=== PATIENT | male | born 1975 ===

== ENCOUNTER 2017-02-02 19:54 | Emergency (ER) | payer BC, MEDICARE ==
[2017-02-02 20:47] VITALS: BP 145/74; PULSE 82; RESP 20; TEMP 98.1; O2SAT 100
--- NOTE | 2017-02-02 21:11 | C.PDOC ---
History Of Present Illness A 41 y/o male c/o an itchy rash to the left chest and left mid back for 2 days. Pt denies fever, chills, nausea, vomiting, sick contact, new foods, dizziness, or any other complaints. Time Seen by Provider: 02/02/17 20:53 Chief Complaint (Nursing): Abnormal Skin Integrity History Per: Patient History/Exam Limitations: no limitations Onset/Duration Of Symptoms: Days Current Symptoms Are (Timing): Still Present Location Of Injury: Left: Back (itchy rash), Chest (itchy rash), Anterior: Back , Chest Quality Of Symptoms: Itching Severity: Mild Recent travel outside of the [place]: No Additional History Per: Patient Past Medical History Reviewed: Historical Data, Nursing Documentation, Vital Signs Vital Signs: Last Vital Signs Temp 98.1 F 02/02/17 20:44 Pulse 82 02/02/17 20:44 Resp 20 02/02/17 21:23 BP 145/74 02/02/17 20:44 Pulse Ox 100 02/04/17 04:08 - Medical History PMH: HTN, End Stage Renal Disease, Chronic Kidney Disease - [facility] Procedures HEMODIALYSIS (05/04/14) PERFORMANCE OF URINARY FILTRATION, SINGLE (09/10/15) Family History: States: Unknown Family Hx - Social History Hx Tobacco Use: Yes Hx Alcohol Use: No Hx Substance Use: No - Immunization History Hx Tetanus Toxoid Vaccination: Yes Hx Influenza Vaccination: Yes Hx Pneumococcal Vaccination: No Review Of Systems Constitutional: Negative for: Fever, Chills Gastrointestinal: Negative for: Nausea, Vomiting Skin: Positive for: Rash (Itchy rash to the Left mid back and left chest) Neurological: Negative for: Dizziness Physical Exam - Physical Exam Appears: Non-toxic, No Acute Distress Skin: Warm, Dry, Rash (Erythematous vesicular rash; dermatomal pattern to left upper back, radiating to left chest wall/ abdomen) Head: Atraumatic, Normacephalic Eye(s): bilateral: Normal Inspection Oral Mucosa: Moist Chest: Symmetrical, No Tenderness Cardiovascular: Rhythm Regular, No Murmur Respiratory: Normal Breath Sounds, No Accessory Muscle Use, No Wheezing Neurological/Psych: Oriented x3, Normal Speech, Normal Cognition, Normal Sensation Gait: Steady ED Course And Treatment O2 Sat by Pulse Oximetry: 100 (RA) Pulse Ox Interpretation: Normal Progress Note: Impression: A 41 y/o male c/o rash to the left chest and left mid back for 2 days. Plans: Reassess. Pt is in no acute distress at this time. Pt was advised to follow up with PMD within 1-2 days. Disposition Counseled Patient/Family Regarding: Diagnosis, Need For Followup, Rx Given - Disposition Referrals: Jamey Viveros DO [Staff Provider] - Disposition: HOME/ ROUTINE Disposition Time: 21:08 Condition: STABLE Additional Instructions: Please follow up with PMD Take meds as prescribed Return to ER if worse Prescriptions: Acetaminophen with Codeine [Tylenol with Codeine #3 Tablet] 2 each PO QID #20 tablet DiphenhydrAMINE [Benadryl] 50 mg PO BID #14 cap Valacyclovir HCl [Valtrex] 1 gm PO TID #21 tablet Instructions: Shingles (ED) - Clinical Impression Clinical Impression: Herpes zoster - Scribe Statement The provider has reviewed the documentation as recorded by the Shobhaibjazmine grey All medical record entries made by the Shobhaibjazmine were at my direction and personally dictated by me. I have reviewed the chart and agree that the record accurately reflects my personal performance of the history, physical exam, medical decision making, and the department course for this patient. I have also personally directed, reviewed, and agree with the discharge instructions and disposition.
== END 2017-02-02 21:23 | disposition home or self-care (01) ==
LOC: C.ER 19:54
DX: B02.9 Zoster without complications (principal)

== ENCOUNTER 2017-02-08 14:14 | Observation (INO) | payer MEDICARE ==
--- NOTE | 2017-02-08 16:11 | C.PDOC ---
History Of Present Illness 41 y/o male presents to ED with complaint of shortness of breath that started today. Patient with past medical history of ESRD, MWF dialysis, and notes he did not have dialysis today because he had to go get his license. He states that he typically gets short of breath when he misses dialysis. Patient denies chest pain. Patient also he has abdominal pain secondary to rash- recent diagnosis of shingles. Denies nausea or vomiting. No fever. Time Seen by Provider: 02/08/17 15:50 Chief Complaint (Nursing): Dizziness/Lightheaded History Per: Patient History/Exam Limitations: no limitations Onset/Duration Of Symptoms: Hrs Current Symptoms Are (Timing): Still Present Past Medical History Reviewed: Historical Data, Nursing Documentation, Vital Signs Vital Signs: Last Vital Signs Temp 97.8 F 02/08/17 14:29 Pulse 91 H 02/08/17 15:11 Resp 20 02/08/17 15:11 BP 190/94 H 02/08/17 15:11 Pulse Ox 100 02/08/17 18:25 - Medical History PMH: HTN, End Stage Renal Disease, Chronic Kidney Disease - [facility] Procedures HEMODIALYSIS (05/04/14) PERFORMANCE OF URINARY FILTRATION, SINGLE (09/10/15) Family History: States: Unknown Family Hx - Social History Hx Tobacco Use: Yes Hx Alcohol Use: No Hx Substance Use: No - Immunization History Hx Tetanus Toxoid Vaccination: Yes Hx Influenza Vaccination: Yes Hx Pneumococcal Vaccination: No Review Of Systems Except As Marked, All Systems Reviewed And Found Negative. Constitutional: Negative for: Fever, Chills Cardiovascular: Negative for: Chest Pain Respiratory: Positive for: Shortness of Breath. Negative for: Cough Gastrointestinal: Positive for: Abdominal Pain. Negative for: Nausea, Vomiting , Diarrhea Skin: Positive for: Rash Neurological: Negative for: Weakness, Numbness Physical Exam - Physical Exam Appears: Non-toxic, No Acute Distress Skin: Warm, Dry, Rash (healing rash to the left side of the abdomen with excoriations ; does not cross midline.) Head: Atraumatic, Normacephalic Eye(s): bilateral: Normal Inspection, EOMI Nose: Normal Oral Mucosa: Moist Neck: Normal ROM, Supple Chest: Symmetrical Cardiovascular: Rhythm Regular Respiratory: Decreased Breath Sounds, No Accessory Muscle Use, No Rhonchi, No Wheezing Gastrointestinal/Abdominal: Soft, No Tenderness, No Guarding, No Rebound Back: Normal Inspection Extremity: Normal ROM, Capillary Refill (< 2 sec. ) Neurological/Psych: Oriented x3, Normal Speech, Normal Cognition ED Course And Treatment - Laboratory Results Result Diagrams: 02/08/17 16:45 02/08/17 16:45 ECG: Interpreted By Me ECG Rhythm: Sinus Rhythm Rate From EC (bpm) O2 Sat by Pulse Oximetry: 100 (RA) Pulse Ox Interpretation: Normal - Radiology CXR: Interpreted by Me, Viewed By Me CXR Interpretation: Yes: Cardiomegaly. No: Infiltrates Progress Note: EKG, CXR, labs ordered and reviewed. Discussed with Dr. Veronica and with head custodian Dr. Zapata at 17:50 who agree upon on plan of admission and dialysis. Disposition - Disposition Disposition: HOSPITALIZED Disposition Time: 17:56 Condition: STABLE - Clinical Impression Clinical Impression: Hyperkalemia, ESRD on dialysis, Herpes zoster, SOB (shortness of breath) - PA / DINKEY SKINNER / Resident Statement MD/DO has reviewed & agrees with the documentation as recorded. - Scribe Statement The provider has reviewed the documentation as recorded by the Scribjazmine Palomino All medical record entries made by the Mark Anthony were at my direction and personally dictated by me. I have reviewed the chart and agree that the record accurately reflects my personal performance of the history, physical exam, medical decision making, and the department course for this patient. I have also personally directed, reviewed, and agree with the discharge instructions and disposition.
[2017-02-08 17:01] LABS: BASO # 0.1 K/uL (0.0-0.2); EOS # 0.3 K/uL (0.0-0.7); HEMATOCRIT 34.6 % (35.0-51.0); LYMPH # 1.6 K/uL (1.0-4.3); LYMPH % 22.9 % (20.0-40.0); MEAN CELL VOLUME 89.9 fL (80.0-94.0); MEAN CORPUSCULAR HEMOGLOBIN 29.3 pg (27.0-31.0); MEAN CORPUSCULAR HGB CONC 32.6 g/dL (33.0-37.0); MEAN PLATELET VOLUME 8.2 fL (7.2-11.7); MONO # 0.8 K/uL (0.0-0.8); MONO % 10.7 % (0.0-10.0); RED CELL DISTRIBUTION WIDTH 15.6 % (11.5-14.5); WHITE BLOOD COUNT 7.2 K/uL (4.8-10.8)
[2017-02-08 17:20] LABS: POTASSIUM 5.7 mmol/L (3.6-5.2)
[2017-02-08 17:22] LABS: BILIRUBIN,TOTAL 0.9 mg/dL (0.2-1.3)
[2017-02-08 17:23] LABS: ALB/GLOB RATIO 1.5 (1.0-2.1); CALCIUM 8.9 mg/dl (8.6-10.4); TOTAL PROTEIN 7.3 g/dL (6.3-8.3)
[2017-02-08 17:35] LABS: TROPONIN I 0.095 ng/mL (0.00-0.120)
--- NOTE | 2017-02-08 18:38 | CP.PCM.HP ---
Past Patient History - Infectious Disease Hx of Infectious Diseases: None - Past Medical History & Family History Past Medical History?: Yes - Past Social History Smoking Status: Light Smoker < 10 Cigarettes Daily - CARDIAC Hx Hypertension: Yes - PULMONARY Hx Respiratory Disorders: No - NEUROLOGICAL Hx Neurological Disorder: No - HEENT Hx HEENT Problems: No - RENAL Hx Chronic Kidney Disease: Yes - ENDOCRINE/METABOLIC Hx Endocrine Disorders: No - HEMATOLOGICAL/ONCOLOGICAL Hx Blood Disorders: No Hx Shingles: Yes (to Abdomen area on January 2017) - INTEGUMENTARY Hx Dermatological Problems: No - MUSCULOSKELETAL/RHEUMATOLOGICAL Hx Musculoskeletal Disorders: No - GASTROINTESTINAL Hx Gastrointestinal Disorders: No - GENITOURINARY/GYNECOLOGICAL Hx Genitourinary Disorders: No - PSYCHIATRIC Hx Substance Use: No - SURGICAL HISTORY Hx Surgeries: Yes Other/Comment: AVF - ANESTHESIA Hx Anesthesia: Yes Hx Anesthesia Reactions: No Hx Malignant Hyperthermia: No Meds Allergies/Adverse Reactions: Allergies Allergy/AdvReac Type Severity Reaction Status Date / Time IV DYE Allergy Uncoded 02/08/17 14:34 Results - Vital Signs Recent Vital Signs: Last Vital Signs Temp 97.8 F 02/08/17 14:29 Pulse 91 H 02/08/17 15:11 Resp 20 02/08/17 15:11 BP 190/94 H 02/08/17 15:11 Pulse Ox 100 02/08/17 18:25 - Labs Result Diagrams: 02/08/17 16:45 02/08/17 16:45
[2017-02-09 01:30] VITALS: TEMP 97.9; O2SAT 97
[2017-02-09] MEDS ORDERED: Multivitamin Vitamin B Complex (Nephro-Vite) Tab PO SCH (08:00)
--- NOTE | 2017-02-09 08:26 | RAD ---
PROCEDURE: CHEST RADIOGRAPH, 1 VIEW HISTORY: Shortness of breath COMPARISON: 08/31/2016 FINDINGS: LUNGS: Mild venous congestion. Right hilar prominence. PLEURA: No pneumothorax or pleural fluid seen. CARDIOVASCULAR: Mild cardiomegaly. OSSEOUS STRUCTURES: No significant abnormalities. VISUALIZED UPPER ABDOMEN: Normal. OTHER FINDINGS: None. IMPRESSION: Mild venous congestion. Right hilar prominence. Mild cardiomegaly.
[2017-02-09] MEDS: Acetaminophen-Codeine 300/30 mg Tab PO SCH ×2 (10:42→13:53)
[2017-02-09 10:45] VITALS: RESP 91
--- NOTE | 2017-02-09 11:33 | CP.PCM.CON ---
History of Present Illness - History of Present Illness History of Present Illness: 41 y/o male with ESRD on maintenance HD MWF ,HTN presented to ER yesterday for c/o SOB which started in am yesterday Pt did not go for dialysis & came to ER. , No c/o CP Past Patient History - Infectious Disease Hx of Infectious Diseases: None - Past Medical History & Family History Past Medical History?: Yes - Past Social History Smoking Status: Heavy Smoker > 10 Cigarettes Daily - CARDIAC Hx Hypertension: Yes - PULMONARY Hx Respiratory Disorders: No - NEUROLOGICAL Hx Neurological Disorder: No - HEENT Hx HEENT Problems: No - RENAL Hx Chronic Kidney Disease: Yes Date of Last Dialysis Treatment: 02/08/17 Hx Renal Failure: Yes - ENDOCRINE/METABOLIC Hx Endocrine Disorders: No - HEMATOLOGICAL/ONCOLOGICAL Hx Blood Disorders: No Hx Shingles: Yes (to Abdomen area on January 2017) - INTEGUMENTARY Hx Dermatological Problems: No - MUSCULOSKELETAL/RHEUMATOLOGICAL Hx Musculoskeletal Disorders: No Hx Falls: No - GASTROINTESTINAL Hx Gastrointestinal Disorders: No - GENITOURINARY/GYNECOLOGICAL Hx Genitourinary Disorders: No - PSYCHIATRIC Hx Substance Use: No - SURGICAL HISTORY Hx Surgeries: Yes Other/Comment: AVF - ANESTHESIA Hx Anesthesia: Yes Hx Anesthesia Reactions: No Hx Malignant Hyperthermia: No Meds Allergies/Adverse Reactions: Allergies Allergy/AdvReac Type Severity Reaction Status Date / Time IV DYE Allergy Uncoded 02/08/17 14:34 - Medications Medications: Current Medications Acetaminophen/Codeine Phosphate (Tylenol/Codeine 300 Mg/30 Mg) 2 ea PO QID [facility] Last Admin: 02/09/17 10:42 Dose: Not Given Diphenhydramine HCl (Benadryl) 50 mg PO BID [facility] Last Admin: 02/09/17 10:39 Dose: 50 mg Heparin Sodium (Porcine) (Heparin) 5,000 units SC Q8 [facility] Last Admin: 02/09/17 06:13 Dose: 5,000 units Labetalol HCl (Trandate) 200 mg PO BID [facility] Last Admin: 02/09/17 10:41 Dose: 200 mg Lisinopril (Zestril) 40 mg PO DAILY [facility] Last Admin: 02/09/17 10:40 Dose: 40 mg Pneumococcal Polyvalent Vaccine (Pneumovax 23 Vaccine) 0.5 ml IM .ONCE ONE Stop: 02/10/17 10:01 Sevelamer Carbonate (Renvela) 800 mg PO TIDCC [facility] Last Admin: 02/09/17 07:52 Dose: 800 mg Valacyclovir HCl (Valtrex) 1,000 mg PO TID [facility] Vitamin B Complex/Vit C/Folic Acid (Nephro-Philip) 1 tab PO 0800 [facility] Last Admin: 02/09/17 07:51 Dose: 1 tab Physical Exam - Constitutional Appears: No Acute Distress - Head Exam Head Exam: ATRAUMATIC, NORMOCEPHALIC - Eye Exam Eye Exam: Normal appearance Additional comments: No icterus - Neck Exam Additional comments: Neck supple - Respiratory Exam Respiratory Exam: NORMAL BREATHING PATTERN Additional comments: Lungs clear. Comfortable supine - Cardiovascular Exam Cardiovascular Exam: REGULAR RHYTHM - GI/Abdominal Exam Additional comments: Soft nontender - Extremities Exam Additional comments: No edema or cyanosis Results - Vital Signs Recent Vital Signs: Last Vital Signs Temp 97.9 F 02/09/17 07:00 Pulse 80 02/09/17 07:30 Resp 91 H 02/09/17 10:44 BP 183/102 H 02/09/17 10:44 Pulse Ox 97 02/09/17 07:00 - Labs Result Diagrams: 02/08/17 16:45 02/08/17 16:45 Assessment & Plan - Assessment and Plan (Free Text) Assessment: ESRD on HD HTN improved after dialysis Plan: Pt had urgent dialysis last evening with UF of 3.5 Kg. HD tolerated well Continue HD MWF Continue current BP meds
[2017-02-09 11:53] VITALS: BP 151/86; PULSE 83
--- NOTE | 2017-02-09 15:10 | CP.PCM.PN ---
Subjective - Date & Time of Evaluation Date of Evaluation: 02/09/17 Time of Evaluation: 11:25 - Subjective Subjective: Pt seen today states feels better , sob improved after HD , denies any chest pain,abdominal pain , headache, nausea Bp - improved Objective - Vital Signs/Intake and Output Vital Signs (last 24 hours): Temp Pulse Resp BP Pulse Ox 97.9 F 83 91 H 151/86 H 97 02/09/17 07:00 02/09/17 11:52 02/09/17 10:44 02/09/17 11:52 02/09/17 07:00 Intake and Output: 02/09/17 02/09/17 06:59 18:59 Intake Total 180 Balance 180 - Medications Medications: Current Medications Acetaminophen/Codeine Phosphate (Tylenol/Codeine 300 Mg/30 Mg) 2 ea PO QID [facility] Last Admin: 02/09/17 13:53 Dose: Not Given Diphenhydramine HCl (Benadryl) 50 mg PO BID [facility] Last Admin: 02/09/17 10:39 Dose: 50 mg Heparin Sodium (Porcine) (Heparin) 5,000 units SC Q8 [facility] Last Admin: 02/09/17 13:52 Dose: Not Given Labetalol HCl (Trandate) 200 mg PO BID [facility] Last Admin: 02/09/17 10:41 Dose: 200 mg Lisinopril (Zestril) 40 mg PO DAILY [facility] Last Admin: 02/09/17 10:40 Dose: 40 mg Pneumococcal Polyvalent Vaccine (Pneumovax 23 Vaccine) 0.5 ml IM .ONCE ONE Stop: 02/10/17 10:01 Sevelamer Carbonate (Renvela) 800 mg PO TIDCC [facility] Last Admin: 02/09/17 13:00 Dose: Not Given Valacyclovir HCl (Valtrex) 1,000 mg PO TID [facility] Vitamin B Complex/Vit C/Folic Acid (Nephro-Philip) 1 tab PO 0800 [facility] Last Admin: 02/09/17 07:51 Dose: 1 tab Assessment and Plan - Assessment and Plan (Free Text) Assessment: 41 yr old male with PMHX of ESRD on HD and HTN , admitted for sob Pt had HD last night sob improved after HD and bp stable seen by Dr. Mcginnis today stated no extra HD needed pt stable for discharge home today and continue HD as scheduled discussed with Dr. Glenys berman for discharge home today and f/u with Dr. Viveros office in 3- 5 days Discharge plan discussed with patient , who understands and agrees with plan Patient states he has all prescriptions no RX noted
[2017-02-09] MEDS ORDERED: Pneumococcal 23-Valent Vaccine IM ONE (15:14)
[2017-02-10] MEDS ORDERED: Pneumococcal 23-Valent Vaccine IM ONE (10:00)
--- NOTE | 2017-02-11 00:33 | CARD ---
APPROVED REPORT EKG Measurement Heart [id number] <Conclusion> Normal sinus rhythm LVH w strain pattern Possible Left atrial enlargement Rightward axis Prolonged QT Abnormal ECG
== END 2017-02-09 16:10 | disposition home or self-care (01) ==
LOC: C.ER 14:14 → C.9E 17:49 → C.5T 18:41
PROVIDERS: ADMIT Internal Medicine Critical Care Medicine; ATTEND Internal Medicine Critical Care Medicine
DX: E87.5 Hyperkalemia (principal); I12.0 Hypertensive chronic kidney disease with stage 5 chronic kidney disease or end stage renal disease; N18.6 End stage renal disease; F17.210 Nicotine dependence, cigarettes, uncomplicated; Z99.2 Dependence on renal dialysis
CPT/HCPCS: 71010; 80053; 82550; 82553; 83880; 84484; 85025; 90732; 99285; G0009; G0257; G0378; J0360; J1644

== ENCOUNTER 2017-07-04 21:13 | Emergency (ER) | payer MEDICARE, BC ==
[2017-07-04 21:22] VITALS: PULSE 77; TEMP 98; O2SAT 100
[2017-07-04 22:06] LABS: BASO # 0.1 K/uL (0.0-0.2); BASO % 1.3 % (0.0-2.0); EOS # 0.3 K/uL (0.0-0.7); EOS % 4.1 % (0.0-4.0); HEMATOCRIT 28.9 % (35.0-51.0); LYMPH # 1.1 K/uL (1.0-4.3); LYMPH % 16.6 % (20.0-40.0); MEAN CELL VOLUME 88.4 fL (80.0-94.0); MEAN CORPUSCULAR HEMOGLOBIN 29.5 pg (27.0-31.0); MEAN CORPUSCULAR HGB CONC 33.4 g/dL (33.0-37.0); MEAN PLATELET VOLUME 8.7 fL (7.2-11.7); MONO # 0.6 K/uL (0.0-0.8); MONO % 9.6 % (0.0-10.0); RED CELL DISTRIBUTION WIDTH 15.4 % (11.5-14.5); WHITE BLOOD COUNT 6.5 K/uL (4.8-10.8)
[2017-07-04 22:17] LABS: POTASSIUM 5.9 mmol/L (3.6-5.2)
[2017-07-04 22:19] LABS: ALB/GLOB RATIO 1.2 (1.0-2.1); BILIRUBIN,TOTAL 0.8 mg/dL (0.2-1.3); TOTAL PROTEIN 7.8 g/dL (6.3-8.3)
[2017-07-04 22:20] LABS: CALCIUM 6.6 mg/dl (8.6-10.4)
[2017-07-04 22:22] VITALS: BP 161/89; RESP 18
[2017-07-04 22:32] LABS: TROPONIN I 0.068 ng/mL (0.00-0.120)
[2017-07-04] MEDS ORDERED: Sod Polystyrene Sulf 15 gm/60 ml Susp PO ONE (22:51)
--- NOTE | 2017-07-04 22:54 | C.PDOC ---
History Of Present Illness 41 year old male presents to the ER with a complaint of a dry nonproductive cough for the past 1 day. Patient has taken nothing for his symptoms and is a Wednesday, Wednesday, Wednesday dialysis patient due for dialysis tomorrow. Denies fever, chills, nausea, or vomiting. Time Seen by Provider: 07/04/17 21:35 Chief Complaint (Nursing): Medical Clearance History Per: Patient History/Exam Limitations: no limitations Onset/Duration Of Symptoms: Days Current Symptoms Are (Timing): Still Present Recent travel outside of the [place]: No Past Medical History Reviewed: Historical Data, Nursing Documentation, Vital Signs Vital Signs: Last Vital Signs Temp 98.0 F 07/04/17 21:18 Pulse 77 07/04/17 22:21 Resp 18 07/04/17 22:21 BP 161/89 H 07/04/17 22:21 Pulse Ox 100 07/04/17 23:00 - Medical History PMH: HTN, End Stage Renal Disease, Chronic Kidney Disease - [facility] Procedures HEMODIALYSIS (05/04/14) PERFORMANCE OF URINARY FILTRATION, SINGLE (09/10/15) Family History: States: Unknown Family Hx - Social History Hx Tobacco Use: Yes Hx Alcohol Use: Yes Hx Substance Use: No - Immunization History Hx Tetanus Toxoid Vaccination: Yes Hx Influenza Vaccination: Yes Hx Pneumococcal Vaccination: No Review Of Systems Constitutional: Negative for: Fever, Chills Respiratory: Positive for: Cough. Negative for: Sputum Gastrointestinal: Negative for: Nausea, Vomiting Physical Exam - Physical Exam Appears: Non-toxic, No Acute Distress Skin: Normal Color, Warm, Dry Head: Atraumatic, Normacephalic Eye(s): bilateral: Normal Inspection, EOMI Ear(s): Bilateral: Normal Nose: Normal Oral Mucosa: Moist Neck: Normal, Supple Chest: Symmetrical, No Tenderness Cardiovascular: Rhythm Regular Respiratory: Decreased Breath Sounds (Left, consistent with cardiomegaly), No Rales, No Rhonchi, No Wheezing Gastrointestinal/Abdominal: Soft, No Tenderness Extremity: No Pedal Edema Neurological/Psych: Oriented x3, Normal Speech, Normal Cognition ED Course And Treatment - Laboratory Results Result Diagrams: 07/04/17 22:02 07/04/17 22:02 Lab Interpretation: Abnormal (mild elev K+) ECG: Interpreted By Me ECG Rhythm: Sinus Rhythm ECG Interpretation: Normal Rate From EC O2 Sat by Pulse Oximetry: 100 Pulse Ox Interpretation: Normal - Radiology CXR: Interpreted by Me CXR Interpretation: Yes: No Acute Disease, Heart Size, Other (+ mild peaked T^'s ) Progress Note: clonidine 0.2 mg PO Reevaluation Time: 22:55 Reassessment Condition: Improved Medical Decision Making Medical Decision Making: mild dry cough, normal cxr for HD pt MWF pennding HD in AM mild peaked T^'s more c/w LVH than significant elev K+ Kayexylate given Disposition Doctor Will See Patient In The: Office Counseled Patient/Family Regarding: Studies Performed, Diagnosis - Disposition Referrals: Jamey Viveros DO [Staff Provider] - Disposition: HOME/ ROUTINE Disposition Time: 22:56 Condition: GOOD Additional Instructions: robitussin 30 cc every 4-6 hours as needed Follow-up for your normal dialysis in AM as scheduled. Prescriptions: guaiFENesin [Robitussin] 100 mg PO Q6H PRN #1 dose PRN Reason: Cough Instructions: Hyperkalemia (ED), Cold Symptoms (ED) Forms: [employer] [facility] (Telugu) - Clinical Impression Clinical Impression: Cough, Hyperkalemia, Dialysis patient - Scribe Statement The provider has reviewed the documentation as recorded by the Scribe Alfredo Jean All medical record entries made by the Scribe were at my direction and personally dictated by me. I have reviewed the chart and agree that the record accurately reflects my personal performance of the history, physical exam, medical decision making, and the department course for this patient. I have also personally directed, reviewed, and agree with the discharge instructions and disposition.
[2017-07-04] MEDS ORDERED: guaiFENesin 100 mg/5 ml Syrup UD PO STA (22:57)
[2017-07-04] MEDS ORDERED: guaiFENesin 100 mg/5 ml Syrup UD ONE (23:02)
[2017-07-04] MEDS ORDERED: Sod Polystyrene Sulf 15 gm/60 ml Susp ONE (23:02)
--- NOTE | 2017-07-05 10:48 | RAD ---
HISTORY: SOB COMPARISON: Chest x-ray performed 02/08/17 TECHNIQUE: Chest PA and lateral FINDINGS: LUNGS: Bilateral hilar prominence. Interstitial prominence may reflect mild pulmonary venous congestion or infection. Patchy right hilar/ infrahilar opacity. Trace right pleural effusion. Biapical pleural thickening. No definite pneumothorax. Please note that chest x-ray has limited sensitivity for the detection of pulmonary masses. CARDIOVASCULAR: Cardiomegaly. OSSEOUS STRUCTURES: No acute osseous abnormality identified. VISUALIZED UPPER ABDOMEN: Unremarkable. OTHER FINDINGS: None. IMPRESSION: Bilateral hilar prominence. Interstitial prominence may reflect mild pulmonary venous congestion or infection. Patchy right hilar/ infrahilar opacity. Trace right pleural effusion. Biapical pleural thickening. Cardiomegaly. Study marked for PA review.
--- NOTE | 2017-07-05 21:36 | CARD ---
APPROVED REPORT EKG Measurement Heart [id number] <Conclusion> Sinus rhythm with 1st degree AV block Possible Left atrial enlargement Left posterior fascicular block Prolonged QT Abnormal ECG
== END 2017-07-04 23:10 | disposition home or self-care (01) ==
LOC: C.ER 21:13
DX: R05 Cough (principal); E87.5 Hyperkalemia; I12.0 Hypertensive chronic kidney disease with stage 5 chronic kidney disease or end stage renal disease; F17.210 Nicotine dependence, cigarettes, uncomplicated; N18.6 End stage renal disease; Z99.2 Dependence on renal dialysis

== ENCOUNTER 2017-08-11 04:21 | Emergency (ER) | payer MEDICARE, BC ==
[2017-08-11 04:39] VITALS: BP 190/104; PULSE 76; RESP 18; TEMP 98.3; O2SAT 98
[2017-08-11] MEDS ORDERED: Bacitracin 500 Units/gm Oint Foilpak UD TOP ONE (04:52)
[2017-08-11] MEDS ORDERED: Bacitracin 500 Units/gm Oint Foilpak UD ONE (04:52)
--- NOTE | 2017-08-11 05:19 | C.PDOC ---
History Of Present Illness 41 year old male presents to the ER after he scratched a pimple on his penis tonight and it began to bleed persistently. Patient is on dialysis and is due today at 06:00. Patient denies penile bleeding/discharge, pain, or other complaints. Time Seen by Provider: 08/11/17 04:42 Chief Complaint (Nursing): Abnormal Skin Integrity History Per: Patient History/Exam Limitations: no limitations Onset/Duration Of Symptoms: Hrs Current Symptoms Are (Timing): Still Present Recent travel outside of the [place]: No Past Medical History Reviewed: Historical Data, Nursing Documentation, Vital Signs Vital Signs: Last Vital Signs Temp 98.3 F 08/11/17 04:33 Pulse 76 08/11/17 04:33 Resp 18 08/11/17 04:33 BP 190/104 H 08/11/17 04:33 Pulse Ox 98 08/11/17 05:58 - Medical History PMH: HTN, End Stage Renal Disease, Chronic Kidney Disease - [facility] Procedures HEMODIALYSIS (05/04/14) PERFORMANCE OF URINARY FILTRATION, SINGLE (09/10/15) Family History: States: Unknown Family Hx - Social History Hx Tobacco Use: Yes Hx Alcohol Use: Yes Hx Substance Use: No - Immunization History Hx Tetanus Toxoid Vaccination: Yes Hx Influenza Vaccination: Yes Hx Pneumococcal Vaccination: No Review Of Systems Genitourinary: Negative for: Dysuria, Hematuria, Penile Discharge, Penile Pain Skin: Positive for: Other (Bleeding pimple) Physical Exam - Physical Exam Appears: Non-toxic, No Acute Distress Skin: Warm, Dry Head: Atraumatic, Normacephalic Eye(s): bilateral: Normal Inspection Oral Mucosa: Moist Male Genital: Other (Small miniscule skin tag to dorsal aspect of penis with minimal bleeding. No bleeding from urethra, no laceration or lesions.) Neurological/Psych: Oriented x3, Normal Speech ED Course And Treatment O2 Sat by Pulse Oximetry: 98 (Room air) Pulse Ox Interpretation: Normal Progress Note: Bacitracin and pressure dressing applied to the area (2x2 gauze abd bandaid) with good control of bleeding. Patient found to have elevated BP, otherwise asymptomaticl advised to keep dialysis appointment today without fail and follow up with PMD. Disposition Counseled Patient/Family Regarding: Diagnosis, Need For Followup, Rx Given - Disposition Referrals: Jamey Viveros DO [Staff Provider] - Disposition: HOME/ ROUTINE Disposition Time: 05:17 Condition: STABLE Additional Instructions: Please keep a small dressing or band aid on wound Take all your meds Please go for your dialysis today Return to ER if worse Forms: [facility] (Russian), Gen Discharge Inst Irish - Clinical Impression Clinical Impression: Bleeding of penis - PA / BIOINFORMATICS SUPPORT SPECIALIST / Resident Statement MD/DO has reviewed & agrees with the documentation as recorded. - Scribe Statement The provider has reviewed the documentation as recorded by the Scribjazmine Jean All medical record entries made by the Shobhaibjazmine were at my direction and personally dictated by me. I have reviewed the chart and agree that the record accurately reflects my personal performance of the history, physical exam, medical decision making, and the department course for this patient. I have also personally directed, reviewed, and agree with the discharge instructions and disposition.
== END 2017-08-11 05:26 | disposition home or self-care (01) ==
LOC: C.ER 04:21
DX: N48.89 Other specified disorders of penis (principal)

== ENCOUNTER 2018-04-25 12:11 | Emergency (ER) | payer MEDICARE, BC ==
[2018-04-25 12:21] VITALS: RESP 18
--- NOTE | 2018-04-25 12:41 | C.PDOC ---
History Of Present Illness 42 year old male with a history of ESRD, currently on hemodialysis, presents to the emergency department for evaluation of an itchy rash on his right foot for the past year. Patient states that he has been evaluated by a tower observer and was given "some cream" which he used without significant improvement in rash. Otherwise, patient denies recent injury, fever, chills, denies Right foot weakness, sensory or vascular deficits, denies any other active complaints. Pt request work note for today. Time Seen by Provider: 04/25/18 12:15 Chief Complaint (Nursing): Abnormal Skin Integrity History Per: Patient History/Exam Limitations: no limitations Onset/Duration Of Symptoms: Other (1 year) Location Of Injury: Right: Foot Quality Of Symptoms: Itching Past Medical History Reviewed: Historical Data, Nursing Documentation, Vital Signs Vital Signs: Last Vital Signs Temp 97.8 F 04/25/18 13:20 Pulse 81 04/25/18 13:20 Resp 18 04/25/18 13:20 BP 150/85 04/25/18 13:20 Pulse Ox 96 04/25/18 13:20 - Medical History PMH: HTN, End Stage Renal Disease, Chronic Kidney Disease Surgical History: No Surg Hx - [facility] Procedures HEMODIALYSIS (05/04/14) PERFORMANCE OF URINARY FILTRATION, SINGLE (09/10/15) Family History: States: No Known Family Hx - Social History Hx Tobacco Use: Yes Hx Alcohol Use: Yes Hx Substance Use: No - Immunization History Hx Tetanus Toxoid Vaccination: Yes Hx Influenza Vaccination: Yes Hx Pneumococcal Vaccination: No Review Of Systems Except As Marked, All Systems Reviewed And Found Negative. Constitutional: Negative for: Fever Respiratory: Negative for: Wheezing Skin: Positive for: Rash Neurological: Negative for: Weakness Physical Exam - Physical Exam Appears: Well, Non-toxic, No Acute Distress Skin: Warm, Dry, Rash (area of dry thick scaly skin to the medial aspect of the right foot extend to dorsal foot and interphalangeal, scattered scally skin over Right plant surface. No edema, no erythema, no weeping, no evidence of superimposed infection.), Other (excoriation present at the sole of the right foot. No edema or cellulitis. ) Extremity: Normal ROM (Right foot, no neurovascular deficits distally.), No Tenderness, Capillary Refill (less than 2sec to Right foot), No Deformity, No Swelling Neurological/Psych: Oriented x3, Normal Speech, Normal Cognition, Normal Motor, Normal Sensation, Normal Reflexes ED Course And Treatment O2 Sat by Pulse Oximetry: 97 (RA) Pulse Ox Interpretation: Normal Progress Note: On re-eval, pt is afebrile, hemodynamicay stable. non-toxic. Ambulatory in ED with stable gait. Right foot: exam c/w dermatitis r/o fungal infection. FAROM, no neurovascular deficits, no cellulitis. Pt advised and ref. to f/u with PMD, Derm in 2-3 days for re-eval. return to ED if any worsening or new changes. Disposition Counseled Patient/Family Regarding: Diagnosis, Need For Followup - Disposition Referrals: [facility] [Outside] Disposition: HOME/ ROUTINE Disposition Time: 12:41 Condition: STABLE Additional Instructions: Use cream as prescribed Follow up with Dermatology, Podiatry in 2-3 days for re-evaluation. return to ED if any worsening or new changes. 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 - Scribe Statement The provider has reviewed the documentation as recorded by the Scribe (Jefferson Humphrey) All medical record entries made by the Scribe were at my direction and personally dictated by me. I have reviewed the chart and agree that the record accurately reflects my personal performance of the history, physical exam, medical decision making, and the department course for this patient. I have also personally directed, reviewed, and agree with the discharge instructions and disposition.
[2018-04-25 13:21] VITALS: BP 150/85; PULSE 81; TEMP 97.8
[2018-04-25 13:24] VITALS: O2SAT 97
== END 2018-04-25 13:21 | disposition home or self-care (01) ==
LOC: C.ER 12:11
DX: L30.9 Dermatitis, unspecified (principal)